=== PATIENT | male | born 1995 | race African-American/Black ===

== ENCOUNTER 2019-01-18 17:22 | Emergency (ER) | payer SELFPAY | END 2019-01-18 17:56 | disposition home or self-care (01) | LOC: NAV ERS 17:22 | DX: J06.9 Acute upper respiratory infection, unspecified (principal); F17.210 Nicotine dependence, cigarettes, uncomplicated | CPT/HCPCS: 99283 ==

== ENCOUNTER 2019-09-16 20:02 | Emergency (ER) | payer SELFPAY ==
[2019-09-16] MEDS ORDERED: Adacel (T-DAP) 0.5 ML SYRINGE ONE (20:39)
== END 2019-09-16 20:53 | disposition home or self-care (01) ==
LOC: NAV ERS 20:02
DX: S30.810A Abrasion of lower back and pelvis, initial encounter (principal); S80.812A Abrasion, left lower leg, initial encounter; W22.8XXA Striking against or struck by other objects, initial encounter; F17.210 Nicotine dependence, cigarettes, uncomplicated
CPT/HCPCS: 90471; 90715